=== PATIENT | female | born 1965 | race Caucasian/White ===

== ENCOUNTER → 2017-05-07 | Outpatient (CLI) | payer BC ==
[~2017-05-07] MED LIST: ATORVASTATIN CA20 MG; ATORVASTATIN CA20 MG PO; NORCO 5-325 TA1 EACH PO
== END ==
LOC: RAD 14:57
DX: Z12.31 Encounter for screening mammogram for malignant neoplasm of breast (principal)

== ENCOUNTER → 2017-05-23 | Outpatient (CLI) | payer BC | LOC: ULTRA 08:35 | DX: N63.0 Unspecified lump in unspecified breast (principal) ==

== ENCOUNTER → 2017-06-06 | Outpatient (CLI) | payer BC ==
--- NOTE | ~2017-06-06 | S ---
[facility] [place] [address] SURGICAL PATH RPT PROCEDURE Name: KIERRA SIDHU Room #: [facility].#: [id number] Admission: 06/06/17 Date of : 61 Discharge: Report #: [id number] Path Case #: [id number] PATHOLOGY REPORT COLLECTION DATE: 06/06/2017 RECEIVED DATE: 06/06/2017 SUBMITTING PHYS: Dr. Han Hare OTHER PHYS: Dr.Michael Farr SPECIMEN(S) RECEIVED: A.Right breast 1000 6cm * * * * * * * * * * * * FINAL DIAGNOSIS: Breast, right breast 10:00 lesion/nodule, needle core biopsy: - INVASIVE POORLY DIFFERENTIATED DUCTAL CARCINOMA, ADELA GRADE III, MEASURING 1.4 CM IN CONTIGUOUS LENGTH IN A SINGLE CORE. - BACKGROUND OF DUCTAL CARCINOMA IN SITU, HIGH NUCLEAR GRADE AND COMEDO TYPE. COMMENT: Specimen type: Needle core biopsy Tumor site: 10:00, 6.0 cm from nipple Tumor quantitation: 1.4 cm in contiguous length in a single core Histologic type: Invasive ductal carcinoma Histologic grade: Adela grade III Tubules, nuclei and mitoses: 3, 3, 3 respectively LVSI: Not identified Microcalcifications: Present in invasive carcinoma Markers: ER, RI, HER-2/domitila, Ki-67 Block: A1 Co-review: Dr. Allen Roque These findings are telephoned to Ms. V[facility] at [facility] at approximately 11:00 a.m. on 06/07/17. (IUV:mgr; 06/07/2017) PATHOLOGIST: Marlena Mondragon M.D. REPORT ELECTRONICALLY SIGNED BY: Marlena Mondragon M.D. DATE/TIME: 06/07/2017 14:50 * * * * * * * * * * * * GROSS PATHOLOGY: Received in formalin labeled "Kierra Sidhu, right breast 10:00 lesion" and consists of 6 soft, resilient, ferguson-white, and yellow orange tissue cores averaging 1.5 cm in length by 0.3 cm in diameter[address] [address] SURGICAL PATH RPT PROCEDURE Name: KIERRA SIDHU Room #: [facility].#: [id number] Admission: 06/06/17 Date of : 61 Discharge: Report #: [id number] Path Case #: [id number] The cold ischemic time is 3 minutes. The formalin fixation time is approximately 11 hours. The specimen is entirely submitted A1-A3. (JOSEPH; 06/06/2017) CLINICAL HISTORY: Nodule INITIAL CPT CODE(S): A; 75873, 35809(4) Professional services performed by [facility] at [address] , [place] [address] Technical services performed by [facility] at [address] [place] [address], [facility] [address] [address]. PROCEDURE REPORT (Order Date: 06/08/2017 00:00) COMMENT: Quantitative image analysis was performed on block A1. Please see next page for scanned image of results. (AMJ 06/11/2017) PATHOLOGIST: Marlena Mondragon M.D. REPORT ELECTRONICALLY SIGNED BY: Marlena Mondragon M.D. DATE/TIME: 06/11/2017 12:40 [facility] [address] [place] [address] PHONE: [phone] DIRECTOR: Christiano Mccullough M.D. * * * END OF REPORT * * *
== END | disposition home or self-care (01) ==
LOC: ULTRA 08:58
DX: C50.911 Malignant neoplasm of unspecified site of right female breast (principal)